=== PATIENT | female | born 1945 | race Caucasian/White ===

== ENCOUNTER 2018-01-17 08:36 | Outpatient (CLI) | payer MEDICARE, OTHER ==
[2013-08-11 10:23] VITALS: BP 141/83
== END 2018-01-17 08:38 ==
LOC: LAB 08:36
PROVIDERS: ATTEND Family Medicine
DX: R19.7 Diarrhea, unspecified (principal)
CPT/HCPCS: 87045; 87046; 87177; 87209; 87328; 87329; 87427; 87493

== ENCOUNTER 2018-06-16 09:35 | Outpatient (CLI) | payer MEDICARE, OTHER ==
[2013-08-11 10:23] VITALS: BP 141/83
[2018-06-16 09:59] LABS: BASOPHILS % 0.3 (0.0-1.5); EOSINOPHILS % 2.1 % (0.0-6.8); MEAN CORPUSCULAR HEMOGLOBIN 31.4 pg (28.0-34.0); MONOCYTES % 4.4 % (0.0-11.0); NEUTROPHILS # 4.6 # k/uL (1.4-7.7)
[2018-06-16 10:28] LABS: eGFR (Non-African) > 60
[2018-06-16 10:29] LABS: APPEARANCE,URINE CLEAR (CLEAR); COLOR,URINE YELLOW (YELLOW); OCCULT BLOOD,URINE TRACE-INTACT (NEGATIVE); UROBILINOGEN URINE 0.2 Eu (0.2-1.0)
== END 2018-06-16 10:30 ==
LOC: LAB 09:35
PROVIDERS: ATTEND Internal Medicine
DX: E11.9 Type 2 diabetes mellitus without complications (principal); R30.9 Painful micturition, unspecified
CPT/HCPCS: 36415; 80053; 81002; 83036; 85025

== ENCOUNTER 2018-10-06 09:30 | Outpatient (CLI) | payer MEDICARE, OTHER ==
[2013-08-11 10:23] VITALS: BP 141/83
[2018-10-06 09:49] LABS: BASOPHILS % 1.1 % (0.0-1.5); EOSINOPHILS % 4.8 % (0.0-6.8); MEAN CORPUSCULAR HEMOGLOBIN 32.3 pg (28.0-34.0); MONOCYTES % 4.7 % (0.0-11.0); NEUTROPHILS # 3.1 # k/uL (1.4-7.7)
[2018-10-06 10:17] LABS: eGFR (Non-African) > 60
[2018-10-06 10:38] LABS: APPEARANCE,URINE CLEAR (CLEAR); COLOR,URINE YELLOW (YELLOW); OCCULT BLOOD,URINE 1+ (NEGATIVE); PH URINE 5.5 (5.0 - 8.0); UROBILINOGEN URINE 0.2 Eu (0.2-1.0)
== END 2018-10-06 09:35 | disposition home or self-care (01) ==
LOC: LAB 09:30
PROVIDERS: ATTEND Internal Medicine
DX: E11.9 Type 2 diabetes mellitus without complications (principal); I10 Essential (primary) hypertension; R30.9 Painful micturition, unspecified
CPT/HCPCS: 36415; 80053; 81002; 83036; 85025

== ENCOUNTER 2019-04-28 10:19 | Outpatient (CLI) | payer MEDICARE, OTHER ==
[2013-08-11 10:23] VITALS: BP 141/83
[2019-04-28 10:49] LABS: BASOPHILS % 0.5 % (0.0-1.5); NEUTROPHILS # 4.1 # k/uL (1.4-7.7)
[2019-04-28 11:12] LABS: APPEARANCE,URINE CLEAR (CLEAR); COLOR,URINE YELLOW (YELLOW); OCCULT BLOOD,URINE 1+ (NEGATIVE); PH URINE 8.5 (5.0 - 8.0)
[2019-04-28 12:37] LABS: eGFR (Non-African) > 60
[2019-04-28 12:38] LABS: A1C 5.6 % (<5.7)
== END 2019-04-28 10:24 ==
LOC: LAB 10:19
PROVIDERS: ATTEND Internal Medicine
DX: E11.9 Type 2 diabetes mellitus without complications (principal); I10 Essential (primary) hypertension; R30.9 Painful micturition, unspecified
CPT/HCPCS: 36415; 80053; 81002; 83036; 85025